=== PATIENT | male | born 1985 | race Two or more races ===

== ENCOUNTER 2020-01-08 12:02 | Emergency (ER) | payer BC ==
[~2020-01-08] VITALS: Ht 177.8 cm; Wt 76.2 kg
[2020-01-08] MEDS ORDERED: AMOX1TAB5 PO (14:01)
[2020-01-08] MEDS ORDERED: INTESTINEX680 M1 PO (14:01)
== END 2020-01-08 14:03 | disposition home or self-care (01) ==
LOC: ER 12:02
DX: S81.821A Laceration with foreign body, right lower leg, initial encounter (principal); W10.8XXA Fall (on) (from) other stairs and steps, initial encounter; Y93.89 Activity, other specified; Y92.830 Public park as the place of occurrence of the external cause; Y99.8 Other external cause status